=== PATIENT | male | born 1955 | race Two or more races ===

== ENCOUNTER 2024-11-01 17:17 | Emergency (ER) | payer OTHER ==
[~2024-11-01] VITALS: Ht 231.1 cm; Wt 68.0 kg
[2024-11-01] MEDS ORDERED: LANTUS SOL100 UNIT/1 (17:55)
[2024-11-01] MEDS ORDERED: ONDANSETRON HCL 2 MG/ML VIAL IV STA (18:03)
[2024-11-01] MEDS ORDERED: 0.9 % SODIUM CHLORIDE 1,000 ML IV SCH (18:15)
[2024-11-01] MEDS ORDERED: MEPERIDINE HCL/PF 50 MG/ML VIAL IM ONE (18:15)
[2024-11-01 19:40] LABS: HEMATOCRIT 40.1 % (39.0-48.0); HEMOGLOBIN 13.4 g/dL (13-16.00); MEAN CELL VOLUME 87.4 fL (80.0-100.00); MEAN CORPUSCULAR HEMOGLOBIN 29.2 pg (27.00-32.0); MEAN CORPUSCULAR HGB CONC 33.5 g/dl (32.0-36.0); PLATELET COUNT 263 K/uL (150-450); RED BLOOD COUNT 4.59 M/uL (4.00-6.00); RED CELL DISTRIBUTION WIDTH 13.1 % (11.5-14.5)
[2024-11-01 20:00] LABS: CALCIUM 8.9 mg/dL (8.5-10.1); CREATININE SERUM 0.6 mg/dL (0.70-1.30); GFR 134.38; POTASSIUM 3.89 mEq/L (3.5-5.1)
[2024-11-01] MEDS ORDERED: CEFTRIAXONE SODIUM 1,000 MG VIAL IV ONE (20:00)
[2024-11-01] MEDS ORDERED: BARIUM SULFATE 450 ML ORAL.SUSP PO ONE (20:49)
[2024-11-01 21:19] LABS: URINE BILIRRUBIN Negative (NEGATIVE); URINE BLOOD Negative; URINE COLOR Dark Yellow; URINE KETONE Negative (NEGATIVE); URINE LEUKOCYTE Negative; URINE NITRATE Negative; URINE PROTEIN Negative (NEGATIVE); URINE UROBILINOGEN 0.2 E.U./dl
[2024-11-01 21:29] LABS: URINE BACTERIA 7.3 uL (0.0-1933); URINE EPITHELIAL CELLS 1.5 uL (0.0-38.8); URINE WBC 22.7 uL (0.0-23.2)
[2024-11-01 21:30] LABS: URINE APPEARANCE CLEAR; URINE GLUCOSE 500 MG/DL (NEGATIVE)
[2024-11-01] MEDS ORDERED: CEFTRIAXONE SODIUM 1,000 MG VIAL ONE (23:51)
[2024-11-02] MEDS ORDERED: KETO10TA2 PO (02:53)
[2024-11-02] MEDS ORDERED: CEPHALEXIN500 MG PO (02:53)
== END 2024-11-02 03:51 ==
LOC: ER 17:17
PROVIDERS: Emergency Medicine
DX: R60.0 Localized edema (principal); Z88.8 Allergy status to other drugs, medicaments and biological substances; Z85.89 Personal history of malignant neoplasm of other organs and systems; E11.9 Type 2 diabetes mellitus without complications; Z79.4 Long term (current) use of insulin
CPT/HCPCS: 36415; 74177; 76870; 96365; 96366; 96372; 99284; J0696; J2405; J3490; J7030; Q9965